=== PATIENT | male | born 2000 | race Caucasian/White ===

== ENCOUNTER 2023-01-06 18:33 | Emergency (ER) | payer OTHER, BC, SELFPAY ==
[2023-01-06 18:44] VITALS: BP 126/66; PULSE 72; RESP 20; TEMP 36.6; O2SAT 99; BMI 35.0
--- NOTE | 2023-01-06 19:10 | CT_ITS ---
[address] [address] Patient Name: HOLGER GILBERT MRN: [id number] date: 2000 Sex: M Assigned Patient Location: ER Current Patient Location: [facility] Accession/Order Number: [id number] Exam Date: 01/06/2023 19:25 Report Date: 01/06/2023 20:20 At the request of: STORMY DEL CASTILLO Procedure: CT lumbar spine wo con CT LUMBAR SPINE WITHOUT CONTRAST, 01/06/2023 7:25 PM EDT INDICATION: Fall COMPARISON: None. TECHNIQUE: Thin-section axial CT images of the entire lumbar spine were acquired withoutcontrast. Supplemental 2D reformatted images were generated and reviewed as needed. Dose reduction techniques were achieved by using automated exposure control and/or adjustment of mA and/or kV according to patient size and/or use of iterative reconstruction technique. FINDINGS: PARASPINAL: Normal with no visible mass. BONES: There is a fracture through the left anterior aspect of the L1 superior endplate. Associated minimal anterior wedging deformity with approximately 10% anterior loss of height. No visible retropulsion of the posterior vertebral body margin. The other lumbar vertebral bodies are normal in height and architecture. OTHER: None. DISC LEVELS: T12-L1: No significant disc/facet abnormality, spinal stenosis, or foraminal stenosis. L1-L2: No significant disc/facet abnormality, spinal stenosis, or foraminal stenosis. L2-L3: No significant disc/facet abnormality, spinal stenosis, or foraminal stenosis. L3-L4: No significant disc/facet abnormality, spinal stenosis, or foraminal stenosis. L4-L5: No significant disc/facet abnormality, spinal stenosis, or foraminal stenosis. L5-S1: There is a left posterior focal protrusion of the L5-S1 disc. Mass effect is approximately 4 mm with effacement of the left S1 nerve root origin at the thecal sac and compromise of the medial left L5-S1 neural foramen. IMPRESSION: Acute fracture through the left anterior aspect of the L1 superior endplate with minimal anterior wedging deformity. Left posterior focal protrusion of the L5-S1 disc. Electronically authenticated by: Michelle OSULLIVAN Date: 01/06/2023 20:20
--- NOTE | 2023-01-06 19:12 | ED.BACK1 ---
HPI - Back Pain/Injury General Chief Complaint: Back Pain/Injury Stated Complaint: FALL OF ROOF Time Seen by Provider: 01/06/23 18:44 Source: patient Mode of arrival: walk-in Limitations: no limitations History of Present Illness HPI Narrative: Patient is a 22-year-old male who presents to the emergency department for the evaluation of an injury to the back that occurred early this morning at work. Patient states he fell proximally 20 feet off a roof onto his back. He denies head injury, loss of consciousness. He has no pain to the head, neck, upper back. He reports diffuse back pain. He ambulated into the emergency Department and was able to finish the shift at work after falling. He denies any pain to the lower extremities. He has no peripheral paresthesias. No medications taken prior to arrival. He denies abdominal pain, hip pain. Related Data Previous Rx's Medication Instructions Recorded ketorolac 10 mg tablet 10 mg PO TID PRN pain #10 tabs 01/06/23 methocarbamol 750 mg tablet 750 mg PO TID PRN pain #20 tabs 01/06/23 ondansetron 4 mg disintegrating 4 mg PO Q6H PRN nausea and 01/06/23 tablet vomiting #12 tabs oxycodone-acetaminophen 5 mg-325 1 tab PO Q6H PRN pain #15 tabs 01/06/23 mg tablet (Percocet) Allergies Allergy/AdvReac Type Severity Reaction Status Date / Time No Known Drug Allergies Allergy Verified 01/06/23 18:43 Review of Systems ROS Constitutional Denies: fever or chills Ears, nose, mouth, and throat Denies: neck pain Cardiovascular Denies: chest pain Respiratory Denies: shortness of breath or cough Gastrointestinal Denies: nausea or vomiting Musculoskeletal Reports: back pain; Denies: neck pain, extremity pain or extremity swelling Integumentary/Breast Denies: rash PFSH PFSH Social History Smoking status: Never smoker Exam Narrative Exam Narrative: Gen.: Awake, alert, in no distress Head: Normocephalic, atraumatic ENT: Moist mucous membranes; no evidence of head injury or dental injury Respiratory: No respiratory distress, no tenderness of the chest Back: No tenderness of the C-spine, T-spine, patient has diffuse tenderness of the lumbar spine and paraspinal muscles with no bony point tenderness or obvious deformity. No step off or abrasions noted. Extremities: Moves extremities equally, no injuries noted Psych: Normal mood and affect Neuro: No focal neuro deficit Skin: Warm, dry, intact Constitutional Vital Signs - 24 hr 01/06/23 18:44 Temperature 97.9 F Pulse Rate [Monitor] 72 Respiratory Rate 20 Blood Pressure [Right Arm] 126/66 H Pulse Oximetry 99 Oxygen Delivery Method Room Air Course Vital Signs Vital signs: Vital Signs Temperature 97.9 F 01/06/23 18:44 Pulse Rate 72 01/06/23 18:44 Respiratory Rate 20 01/06/23 18:44 Blood Pressure 126/66 H 01/06/23 18:44 Pulse Oximetry 99 01/06/23 18:44 Oxygen Delivery Method Room Air 01/06/23 18:44 Temperature 97.9 F 01/06/23 18:44 Pulse Rate 84 01/06/23 20:59 Respiratory Rate 16 01/06/23 20:59 Blood Pressure 161/84 H 01/06/23 20:59 Pulse Oximetry 97 01/06/23 20:59 Oxygen Delivery Method Room Air 01/06/23 20:59 MDM - Back Pain/Injury MDM Narrative Medical decision making narrative: Patient with no focal neuro deficits or peripheral neuro symptoms at this time. He ambulated in the emergency department. He was treated conservatively with oral pain medication at his request over intramuscular injections. CT of the lumbar spine shows the patient has a fracture of the anterior L1 endplate with ten percent wedging. He'll be treated for lumbar compression fracture, trauma with referral to occupational health and spinal surgery. He is given a course of pain medication, muscle relaxants and anti-inflammatories. He was given instructions to return to the emergency department if symptoms change or worsen, or if he develops any urinary incontinence or stool incontinence, weakness or numbness of the legs. He will also follow-up with occupational health for further evaluation and treatment. Imaging Data CT lumbar spine: Attestation: I have reviewed the pertinent imaging results. Radiologist's impression: Procedure: CT lumbar spine wo con CT LUMBAR SPINE WITHOUT CONTRAST, 01/06/2023 7:25 PM EDT INDICATION: Fall COMPARISON: None. TECHNIQUE: Thin-section axial CT images of the entire lumbar spine were acquired withoutcontrast. Supplemental 2D reformatted images were generated and reviewed as needed. Dose reduction techniques were achieved by using automated exposure control and/or adjustment of mA and/or kV according to patient size and/or use of iterative reconstruction technique. FINDINGS: PARASPINAL: Normal with no visible mass. BONES: There is a fracture through the left anterior aspect of the L1 superior endplate. Associated minimal anterior wedging deformity with approximately 10% anterior loss of height. No visible retropulsion of the posterior vertebral body margin. The other lumbar vertebral bodies are normal in height and architecture. OTHER: None. DISC LEVELS: T12-L1: No significant disc/facet abnormality, spinal stenosis, or foraminal stenosis. L1-L2: No significant disc/facet abnormality, spinal stenosis, or foraminal stenosis. L2-L3: No significant disc/facet abnormality, spinal stenosis, or foraminal stenosis. L3-L4: No significant disc/facet abnormality, spinal stenosis, or foraminal stenosis. L4-L5: No significant disc/facet abnormality, spinal stenosis, or foraminal stenosis. L5-S1: There is a left posterior focal protrusion of the L5-S1 disc. Mass effect is approximately 4 mm with effacement of the left S1 nerve root origin at the thecal sac and compromise of the medial left L5-S1 neural foramen. IMPRESSION: Acute fracture through the left anterior aspect of the L1 superior endplate with minimal anterior wedging deformity. Left posterior focal protrusion of the L5-S1 disc. Electronically authenticated by: Michelle OSULLIVAN Date: 01/06/2023 20:20 Discharge Plan Discharge Chief Complaint: Back Pain/Injury Clinical Impression: Fracture of lumbar spine, Fall Patient Disposition: Home, Self-Care Time of Disposition Decision: 20:38 Condition: Good Prescriptions / Home Meds: New ketorolac 10 mg tablet 10 mg PO TID PRN (Reason: pain) Qty: 10 0RF oxycodone-acetaminophen [Percocet] 5-325 mg tablet 1 tab PO Q6H PRN (Reason: pain) Qty: 15 0RF methocarbamol 750 mg tablet 750 mg PO TID PRN (Reason: pain) Qty: 20 0RF ondansetron 4 mg tablet,disintegrating 4 mg PO Q6H PRN (Reason: nausea and vomiting) Qty: 12 0RF Instructions: Vertebral Compression Fracture (ED) Additional Instructions: Follow up with Occupational health in 2-3 days, Follow up with Dr. Taylor [phone] Etienne ([facility]) [phone] Stand Alone Forms: Portal Instructions Referrals: Physician,Non-Staff, MD [Primary Care Provider] - 1 week Discharge Date/Time: 01/06/23 21:04
--- NOTE | 2023-01-06 19:40 | PC.NURSE ---
Patient sitting up on cart. Back palpated no area of pain was noted. No area of trauma noted. Denies numbness or tingling.
[2023-01-06] MEDS: KETOROLAC TROMETHAMINE 10 MG TABLET PO (20:19)
[2023-01-06] MEDS: METHOCARBAMOL 500 MG TABLET 1000 MG PO (20:20)
[2023-01-06 20:59] VITALS: BP 161/84; PULSE 84; RESP 16; O2SAT 97
== END 2023-01-06 21:04 | disposition home or self-care (01) ==
PROVIDERS: Emergency Provider Emergency Medicine
DX: S32.019A Unspecified fracture of first lumbar vertebra, initial encounter for closed fracture (principal); W17.89XA Other fall from one level to another, initial encounter
CPT/HCPCS: 72131; 99284

== ENCOUNTER 2023-01-11 15:14 | Outpatient (OUT) | payer OTHER, BC, SELFPAY ==
--- NOTE | 2023-01-11 16:11 | CT_ITS ---
The [address] [address] Patient Name: HOLGER GILBERT MRN: [id number] date: 2000 Sex: M Assigned Patient Location: [facility] Current Patient Location: [facility] Accession/Order Number: [id number] Exam Date: 01/11/2023 16:45 Report Date: 01/11/2023 17:03 At the request of: JUDY TAYLOR Procedure: CT abdomen pelvis wo con EXAM: CT abdomen pelvis wo con HISTORY: TRAUMA FROM 20' FALL, ABDOMINAL PAIN COMPARISON: None. TECHNIQUE: Axial CT images were obtained of the abdomen and pelvis without intravenous contrast. Multiplanar reconstructions were performed. ABDOMEN/PELVIS FINDINGS: Lower Chest: Unremarkable. Liver: Normal nonenhanced appearance and contour. Biliary/Gallbladder: Unremarkable. Pancreas: Unremarkable. Spleen: Unremarkable. Adrenal Glands: Unremarkable. Kidneys: Unremarkable. Gastrointestinal/Peritoneum: No acute abnormality. The appendix is unremarkable. No free air or free fluid. Vascular: Unremarkable. Lymph Nodes: No enlarged lymph nodes by CT size criteria. Pelvic Organs: Unremarkable. Bladder: Unremarkable. Bones: An acute or subacute compression fracture is noted at the superior endplate of L1 with minimal loss in vertebral body height. The fracture does not involve the posterior cortex of the vertebral body or the posterior elements. Soft tissues: Unremarkable. IMPRESSION: 1. Acute or subacute compression fracture present at the superior endplate of L1 with minimal loss in vertebral body height. Electronically authenticated by: MARK BURTON Date: 01/11/2023 17:03
== END 2023-01-11 15:15 | disposition home or self-care (01) ==
LOC: RAD 15:17
PROVIDERS: Visit Provider Nurse Practitioner Family
DX: R10.9 Unspecified abdominal pain (principal); S32.019A Unspecified fracture of first lumbar vertebra, initial encounter for closed fracture; W17.89XA Other fall from one level to another, initial encounter
CPT/HCPCS: 74176